=== PATIENT | male | born 1990 | race Hispanic/Latino ===

== ENCOUNTER 2017-11-07 23:33 | Emergency (ER) | payer OTHER | END 2017-11-07 23:59 | disposition home or self-care (01) | LOC: EDH 23:33 | DX: S99.821A Other specified injuries of right foot, initial encounter (principal); Z72.0 Tobacco use; X58.XXXA Exposure to other specified factors, initial encounter; Y93.89 Activity, other specified; Y92.89 Other specified places as the place of occurrence of the external cause; Y99.8 Other external cause status ==